=== PATIENT | male | born 1965 | race Caucasian/White ===

== ENCOUNTER 2019-03-12 12:38 | Emergency (ER) | payer OTHER ==
[~2019-03-12] VITALS: Ht 177.8 cm; Wt 72.6 kg
[~2019-03-12 12:38] MED LIST: NOHOMEMEDICATIONS; ULTRAM 50MG TAB50 MG PO
[2019-03-12] MEDS ORDERED: NORCO 5-325 TA1 EACH PO (14:30)
[2019-03-12] MEDS ORDERED: KEFLEX500 M1 PO (14:30)
[2019-03-12 14:56] VITALS: BP 146/89
== END 2019-03-12 14:57 | disposition home or self-care (01) ==
LOC: ER 12:38
DX: S02.32XA Fracture of orbital floor, left side, initial encounter for closed fracture (principal); H04.89 Other disorders of lacrimal system; F17.210 Nicotine dependence, cigarettes, uncomplicated; I10 Essential (primary) hypertension; X58.XXXA Exposure to other specified factors, initial encounter; Y92.89 Other specified places as the place of occurrence of the external cause; Y93.89 Activity, other specified; Y99.8 Other external cause status